=== PATIENT | male | born 1960 | race Caucasian/White ===

== ENCOUNTER 2020-02-02 01:27 | Emergency (ER) | payer MEDICARE ==
[~2020-02-02] VITALS: Ht 172.7 cm; Wt 69.4 kg
[~2020-02-02 01:27] MED LIST: GABAPENTIN300 MG PO; LOSARTAN POTASS25 MG PO
[2020-02-02] MEDS ORDERED: HYDRALAZINE HCL 20 MG/ML VIAL IV STA (01:48)
[2020-02-02] MEDS ORDERED: HYDRALAZINE HCL 20 MG/ML VIAL ONE (01:59)
[2020-02-02] MEDS ORDERED: PANTOPRAZOLE 40 MG 10ML VIAL IV STA (02:05)
[2020-02-02 02:15] LABS: BASOPHILS # (AUTO) 0.1 (0.0-0.1); BASOPHILS % 0.5 % (0.0-1.0); EOSINOPHILS # (AUTO) 0.2 (0.0-0.4); EOSINOPHILS % 2.5 % (0.0-6.0); HEMOGLOBIN 15.9 g/dL (14.0-18.0); LYMPHOCYTES # (AUTO) 2.4 (1.0-3.2); LYMPHOCYTES % 25.6 % (18.0-39.1); MEAN CORPUSCULAR HEMOGLOBIN 29.9 pg (28-32); MEAN CORPUSCULAR HGB CONC 32.4 g/dL (31-35); MEAN CORPUSCULAR VOLUME 92.3 fL (81-99); MONOCYTES # (AUTO) 0.9 (0.2-0.8); MONOCYTES % 9.7 % (4.4-11.3); NEUTROPHILS # (AUTO) 5.8 (2.1-6.9); NEUTROPHILS % 61.2 % (38.7-80.0); PLATELET COUNT 245 x10e3/uL (140-360); RED BLOOD COUNT 5.31 x10e6/uL (4.3-5.7); RED CELL DISTRIBUTION WIDTH 13.6 % (11.7-14.4)
[2020-02-02] MEDS ORDERED: PANTOPRAZOLE 40 MG 10ML VIAL ONE (02:15)
[2020-02-02 02:36] LABS: ALBUMIN 4.4 g/dL (3.5-5.0); ALBUMIN/GLOBULIN RATIO 1.5 (0.8-2.0); ANION GAP 13.7 mmol/L (8-16); CALCIUM 9.5 mg/dL (8.4-10.2); CREATININE, SERUM 1.42 mg/dL (0.72-1.25); POTASSIUM 4.7 mmol/L (3.5-5.1)
[2020-02-02] MEDS ORDERED: LORAZEPAM INJ 2 MG/ML VIAL IV ONE (02:45)
[2020-02-02] MEDS ORDERED: LORAZEPAM INJ 2 MG/ML VIAL ONE (02:48)
--- NOTE | 2020-02-02 02:48 | NUR ---
patient told he drinks a 6-pack a day, ativan was given for tachycardia and to prevent further complications, in addition, a lipase was ordered
--- NOTE | 2020-02-02 03:00 | Diagnostic Imaging Report ---
EXAMINATION: CHEST SINGLE (PORTABLE) 1 view INDICATION: HIGH BP COMPARISON: None FINDINGS: Surgical clips project over the left hemithorax and axilla. Orthopedic screws in the right femur. Heart is nonenlarged. Pulmonary vasculature is within normal limits. Partially visualized nodular density projecting over the right hilum, measures approximately 1.5 cm. No consolidation. No pleural effusion. No pneumothorax. IMPRESSION: 1. No acute process. 2. Ill-defined nodular density projecting over the right hilum may represent normal superimposed hilar structure, but an enlarged lymph node or pulmonary nodule are also considered. Recommend nonemergent contrast-enhanced chest CT for further evaluation. Signed by: Alex Bearden MD on 02/02/2020 2:56 AM
[2020-02-02 03:03] LABS: CREATINE KINASE MB 2.5 ng/mL (0-5.0)
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
--- NOTE | 2020-02-02 03:34 | NUR ---
patient tolerated ativan well, call light in reach
[2020-02-02] MEDS ORDERED: METOPROLOL TARTRATE INJ 1 MG/ML VIAL IV ONE (04:00)
[2020-02-02] MEDS ORDERED: SODIUM CHLORIDE 0.9% 1000ML 1,000 ML IV STA (04:01)
[2020-02-02] MEDS ORDERED: SODIUM CHLORIDE 0.9% 1000ML 1,000 ML ONE (04:09)
[2020-02-02 04:45] VITALS: BP 163/95
[2020-02-02] MEDS ORDERED: HYDROCHLOROTHIA25 MG PO (04:45)
== END 2020-02-02 05:08 | disposition home or self-care (01) ==
LOC: ER 01:36
DX: I10 Essential (primary) hypertension (principal); R42 Dizziness and giddiness
CPT/HCPCS: 36415; 71045; 80053; 82550; 82553; 83690; 84484; 85025; 93005; 99284; C9113; J0360; J2060; J7030

== ENCOUNTER 2024-12-20 02:57 | Emergency (ER) | payer OTHER ==
[~2024-12-20] VITALS: Ht 172.7 cm; Wt 72.6 kg
[~2024-12-20 02:57] MED LIST changes: +HYDROCHLOROTHIA25 MG PO
[2024-12-20 03:03] VITALS: PULSE 95; RESP 16; TEMP 98.1; O2SAT 95
[2024-12-20] MEDS ORDERED: DOXYCYCLINE HY100 MG PO (03:09)
== END 2024-12-20 03:16 | disposition home or self-care (01) ==
LOC: ER 03:09
DX: L03.113 Cellulitis of right upper limb (principal); T63.301A Toxic effect of unspecified spider venom, accidental (unintentional), initial encounter; Y92.89 Other specified places as the place of occurrence of the external cause; I10 Essential (primary) hypertension; F17.210 Nicotine dependence, cigarettes, uncomplicated
CPT/HCPCS: 99283